=== PATIENT | female | born 1930 | race Caucasian/White ===

== ENCOUNTER 2017-09-19 17:09 | Inpatient (IN) | payer MEDICARE, OTHER ==
--- NOTE | 2017-09-19 17:30 | ED Physician Chart ---
ED Chief Complaint/HPI - Patient Information Date Seen:: 09/19/17 Time Seen:: 17:25 Chief Complaint:: increasing confusion and aggressive behavior History of Present Illness:: Patient has been exhibiting increasing confusion and aggressive behavior at her fdc facility. Allergies:: Allergies Allergy/AdvReac Type Severity Reaction Status Date / Time No Known Allergies Allergy Verified 09/19/17 17:19 Vitals:: Vital Signs - 8 hr 09/19/17 17:10 Temp 98.4 F HR 69 RR 18 BP 123/54 O2 Sat % 98 Historian:: Patient Review:: Nurse's Note Reviewed ED Review of Systems - Review of Systems General/Constitutional: No fever, No chills Skin: No skin lesions Head: No headache Eyes: No loss of vision ENT: No earache Neck: No neck pain, No swelling Cardio Vascular: No chest pain, No palpitations Pulmonary: No SOB GI: No nausea, No vomiting G/U: No dysuria Musculoskeletal: No bone or joint pain, No back pain, No muscle pain Endocrine: No polyuria, No polydipsia Psychiatric: Prior psych history Hematopoietic: No bruising Allergic/Immuno: No urticaria Neurological: No syncope, No headache ED Past Medical History - Past Medical History Past Medical History: HTN, CAD, CHF, Dyslipidemia, Thyroid disorder, Dementia, Other (insomnia; anxiety; major depression; hyperlipidemia; hypothyroidism) Family History: Other (unavailable) Social History: Care Facility Surgical History: Cholecystectomy, , other (2 sections) Psychiatricy History: Dementia Medication: Reviewed Family Medical History - Family Member Mother History Unknown: Yes ED Physical Exam - Physical Examination General/Constitutional: Well-developed, well-nourished, Alert, No distress Other Gen/Cons comments:: Patient is confused; she knows it is or Saturday but does not know the month or year Head: Atraumatic Eyes: Lids, conjuctiva normal, PERRL Skin: Nl inspection, No rash, No skin lesions, No ecchymosis, Well hydrated, No lymphadenopathy ENMT: External ears, nose nl Other ENMT comments:: Upper and lower dentures Neck: No nuchal rigidity Respiratory: Nl effort/Exclusion, Clear to Auscultation Cardio Vascular: RRR, No murmur, gallop, rubs, NL S1 S2 GI: No tenderness/rebounding/guarding, No organomegaly, No hernia, Nondistended , No mass/bruits, No McBurney tenderness : No CVA tenderness Extremities: No tenderness or effusion, Normal digits & nails Neuro/Psych: No focal deficits Misc: No paraspinal tenderness ED Labs/Radiology/EKG Results - Lab Results Results: Laboratory Results - last 24 hr 09/19/17 09/19/17 09/19/17 17:38 17:38 17:38 WBC 5.9 RBC 3.65 L Hgb 11.1 L Hct 33.3 L MCV 91.2 MCH 30.4 MCHC Differential 33.3 RDW 11.9 Plt Count 234 MPV 7.8 Neutrophils % 57.5 Lymphocytes % 30.3 Monocytes % 9.7 Eosinophils % 2.1 Basophils % 0.4 Sodium 141 Potassium 3.6 Chloride 111 H Carbon Dioxide 24.8 Anion Gap 8.8 BUN 22 Creatinine 0.8 Est GFR ( Amer) TNP Est GFR (Non-Af Amer) TNP BUN/Creatinine Ratio 27.5 Glucose 152 H Hemoglobin A1c % 6.0 Calcium 9.0 Total Bilirubin 0.3 AST 19 ALT 16 Alkaline Phosphatase 94 Total Protein 5.8 L Albumin 3.5 L Globulin 2.3 Albumin/Globulin Ratio 1.5 Triglycerides 160 H Cholesterol 152 LDL Cholesterol Direct 82 HDL Cholesterol 52 TSH Salicylates < 25.0 L Acetaminophen < 10.0 L Ethyl Alcohol < 10 09/19/17 17:38 WBC RBC Hgb Hct MCV MCH MCHC Differential RDW Plt Count MPV Neutrophils % Lymphocytes % Monocytes % Eosinophils % Basophils % Sodium Potassium Chloride Carbon Dioxide Anion Gap BUN Creatinine Est GFR ( Amer) Est GFR (Non-Af Amer) BUN/Creatinine Ratio Glucose Hemoglobin A1c % Calcium Total Bilirubin AST ALT Alkaline Phosphatase Total Protein Albumin Globulin Albumin/Globulin Ratio Triglycerides Cholesterol LDL Cholesterol Direct HDL Cholesterol TSH 2.33 Salicylates Acetaminophen Ethyl Alcohol - EKG Interpretations Rate & Rhythm: normal sinus rhythm with a rate of 64 [place]: normal Comments:: Left ventricular hypertrophy by voltage criteria and T inversion in leads V1 to V3. ED Septic Shock - . Is Septic Shock (SBP<90, OR Lactate>4 mmol\L) present?: No - <6hrs of presentation: Vital Signs: Vital Signs - 8 hr 09/19/17 17:10 Temp 98.4 F HR 69 RR 18 BP 123/54 O2 Sat % 98 ED Reassessment (Disposition) - Reassessment Reassessment Condition:: Unchanged - Diagnosis Diagnosis:: Dementia with aggressive behavior - Patient Disposition Admitted to:: [facility] Admitting Medical Physician:: Demarcus Hutchins Admitting Psych Physician:: Judah Degroot Condition at Disposition:: Unchanged ED Discharge Plan - Patient Disposition Instructions: Psychosis
[2017-09-19 17:43] LABS: % BASOPHILS 0.4 % (0.0-2.0); % EOSINOPHILS 2.1 % (0.0-5.0); % LYMPHOCYTES 30.3 % (20.0-50.0); % MONOCYTES 9.7 % (2.0-10.0); % NEUTROPHILS 57.5 % (40.0-80.0); HEMATOCRIT 33.3 % (41.0-60); HEMOGLOBIN 11.1 gm/dL (12-16); MEAN CELL VOLUME 91.2 fl (81-100); MEAN CORPUSCULAR HEMOGLOBIN 30.4 pg (27.0-31.0); MEAN CORPUSCULAR HGB CONC 33.3 pg (28.0-36.0); MEAN PLATELET VOLUME 7.8 fl; NEUTROPHILE ABSOLUTE 3.4 Th/cmm (1.8-8.0); PLATELET COUNT 234 Th/cmm (150-400); RED BLOOD COUNT 3.65 Mil/cmm (3.80-5.20); RED CELL DISTRIBUTION WIDTH 11.9 % (11.5-20.0); WHITE BLOOD COUNT 5.9 Th/cmm (4.8-10.8)
[2017-09-19 18:03] LABS: ACETAMINOPHEN < 10.0 ug/mL (10.0-30.0); ALB/GLOB RATIO 1.5 (1.0-1.8); ALKALINE PHOSPHATASE 94 U/L (34-104); ANION GAP 8.8 (7.0-16.0); BILIRUBIN,TOTAL 0.3 mg/dL (0.3-1.0); BUN - UREA NITROGEN 22 mg/dL (7-25); BUN/CREATININE RATIO 27.5; CARBON DIOXIDE 24.8 mEq/L (21.0-31.0); CHLORIDE 111 mEq/L (98-107); CHOLESTEROL 152 mg/dL (<200); CREATININE - SERUM 0.8 mg/dL (0.6-1.2); GLUCOSE 152 mg/dL (40-70); POTASSIUM SERUM 3.6 mEq/L (3.5-5.1); SGOT 19 U/L (13-39); SGPT/ALT 16 U/L (7-52); SODIUM SERUM 141 mEq/L (136-145); TRIGLYCERIDES 160 mg/dL (<150)
[2017-09-19 19:49] VITALS: BP 122/80
[2017-09-19] MEDS ORDERED: Maalox 30 mL Cup PO PRN (19:56)
[2017-09-19] MEDS ORDERED: Scopolamine 1.5 mg/ 72 hr TDM TD SCH (20:00)
--- NOTE | 2017-09-20 08:40 | History and Physical ---
History of Present Illness - HPI Chief Complaint: Increased in agitation HPI: Patient is a permanent resident of a SNF, they send her for evaluation due to increased in agitation. Vital Signs: Last Vital Signs Temp 98.4 F 09/20/17 00:35 Pulse 63 09/20/17 00:35 Resp 19 09/20/17 00:35 BP 131/56 09/20/17 00:35 Pulse Ox 96 09/20/17 00:35 Past Medical History Cardiovascular: Report: CAD, CHF, HTN Pulmonary: Report: No Pertinent Hx LIABILITY CLAIMS ADJUSTER: Report: Dementia GI: Report: No Pertinent Hx Psych: Report: Psychosis Musculoskeletal: Report: No Pertinent Hx Rheumatologic: Report: No pertinent Hx Infectious Disease: Report: No Pertinent Hx Renal/: Report: No Pertinent Hx Endocrine: Report: Hypothyroidism Dermatology: Report: No Pertinent Hx - Past Surgical History Past Surgical History: No pertinent Hx Family Medical History - Family Member Mother History Unknown: Yes Name:: unknown Ethnicity: Unknown Living Status: Unknown Hx Family Cancer: (unknown) Hx Family Coronary Artery Disease: (unknown) Hx Family Congestive Heart Failure: (unknown) Hx Family Hypertension: (unknown) Hx Family Stroke: (unknown) Hx Family Diabetes: (unknown) Hx Family Seizures: (unknown) Hx Family Dementia: (unknown) Hx Family AIDS: (unknown) Hx Family COPD: (unknown) Hx Family Hepatitis: (unknown) Hx Family Psychiatric Problems: (unknown) Hx Family Tuberculosis: (unknown) Social History Smoke: No Alcohol: None Drugs: None Lives: Intermediate Domestic Violence: Negative - Medications Home Medications: Home Medication Medication Instructions Recorded Type Acetaminophen [Tylenol] 650 mg PO Q6HR PRN 09/19/17 History Carvedilol [Coreg] 3.125 mg PO BID 09/19/17 History Clopidogrel [Plavix] 75 mg PO DAILY 09/19/17 History Donepezil HCl [Aricept] 10 mg PO DAILY 09/19/17 History Ketotifen 0.025% Ophth Soln 2 drop EACH EYE BID 09/19/17 History [Zaditor 0.025% Ophth Soln] Loperamide HCl [Imodium A-D] 1 tab PO Q12H PRN 09/19/17 History Losartan Potassium [Cozaar] 100 mg PO DAILY 09/19/17 History Mag Hydrox/Al Hydrox/Simeth 60 ml PO Q12H PRN 09/19/17 History [Aluminum & Magnesium Hydroxide/Simethicone 35] Meclizine [Antivert*] 25 mg PO DAILY 09/19/17 History Meclizine [Antivert*] 25 mg PO Q6H PRN 09/19/17 History Omeprazole 20 mg PO DAILY 09/19/17 History Ondansetron HCl [Zofran*] 2 tab PO Q6H PRN 09/19/17 History Ranolazine [Ranexa] 500 mg PO BID 09/19/17 History Scopolamine [Transderm Scop Patch] 1 patch TD Q72H 09/19/17 History Simvastatin [Zocor] 20 mg PO DAILY 09/19/17 History - Allergies Allergies/Adverse Reactions: Allergies Allergy/AdvReac Type Severity Reaction Status Date / Time No Known Allergies Allergy Verified 09/19/17 17:19 Review of Systems - Review of Systems Constitutional: Report: No Significant Eyes: Report: No Significant ENT: Report: No Significant Respiratory: Report: No Significant Cardiovascular: Report: No Significant Gastrointestinal: Report: No Significant Genitourinary: Report: No Significant Musculoskeletal: Report: No Significant Skin: Report: No Significant Neurological: Report: No Significant Physical Exam - Physical Exam HEENT: Report: Ears Nose Throat within normal limits Neck: Report: Within normal limits Cardiovascular Systems: Report: Regular, Rate and Rhythm Respiratory: Report: Breath Sounds are within normal limits Abdomen: Report: Non-tender to palpation Back: Report: Inspection of back is within normal limits. Extremities: Report: Non-tender to palpation. Skin: Report: Color of skin is within normal limits Neuro/Psych: Report: Disoriented to name time or place (Confused) - Assessment Assessment: Patient is awake, alert, calm, in no acute distress. Dx: Increased in agitation , Dementia, HTN, CAD, CHF, Hypothyroidism - Plan Plan: Patient is under psychiatric care. Will continue with SNF meds.
[2017-09-20] MEDS ORDERED: Non-Formulary Item 1 EA (Ranolazine [Ranexa] 500 MG) PO SCH (09:00)
[2017-09-20] MEDS: Pantoprazole 40 mg EC Tab PO SCH (09:52)
[2017-09-20] MEDS: Scopolamine 1.5 mg/ 72 hr TDM TD SCH (20:00)
--- NOTE | 2017-09-21 04:27 | Psychosocial Evaluation ---
DATE OF SERVICE: 09/19/2017 Staff was spoken to. The patient is interviewed. JUSTIFICATION FOR HOSPITALIZATION: The patient is admitted on a voluntary basis in view of her acute agitation, confusion, and aggressive behavior. CHIEF COMPLAINT: "I'm great." HISTORY OF PRESENT ILLNESS: This is the first psychiatric hospitalization to [facility] for this patient from [facility] where the patient is reported to been having increased confusion and aggressive behavior and hence the patient has been transferred over here for stabilization. Prior to the hospitalization, the patient was maintained on Ativan on a p.r.n. basis, but the patient during the interview has been getting easily irritable and angry and is stating that she did all kinds of job, she has so many businesses. This patient is going on and on. The patient at this time of the evaluation has been on medication for her blood pressure, but the patient has not been taking any medication. The patient is stating that she has been constantly hearing the noises and voices in her head, particularly from the TV even when she is not in front of the TV and they have been bothering her a lot. The patient is not able to sleep. The patient is stating that she also has been having problems and the patient is stating that people are getting into her business, that is the reason why she has been getting agitated. The patient is noted to be having difficult time with her short as well as long-term memory, but the patient is going on in different directions to give one answer. PAST PSYCHIATRIC HISTORY: Details are not known. MEDICAL HISTORY: Physical examination is requested and done by Dr. Hutchins. SUBSTANCE ABUSE HISTORY: None. PHYSICAL OR SEXUAL ABUSE HISTORY: None. LEGAL PROBLEMS: None at this time. STRENGTH AND ASSETS: The patient is motivated. MENTAL STATUS EXAMINATION: The patient is an 86-year-old woman looking her stated age, thin built, superficially cooperative. Eye contact is poor. Mood is irritable. The patient has paranoid delusions. The patient has been going on a tangent and the patient is not able to contract for safety. The patient is stating that she has several different jobs and she does not want to talk about it. 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 She is also stating that she is ____ and she is proud of her country. The patient's short and long-term memory noted to be very poor. The patient is going on a tangent. DIAGNOSTIC IMPRESSION: AXIS I: a. Psychosis, not otherwise specified. b. Dementia and behavioral change secondary to ____. AXIS II: None. AXIS III: As per Dr. Hutchins. IMMEDIATE TREATMENT PLAN: The patient is going to be observed on inpatient unit, provided with supportive psychotherapy. The patient is going to be closely monitored. Encouraged to participate in the groups and verbalize the concerns. Once stabilized, the patient is going to be discharged to [facility] to be followed up on an outpatient basis. JOB# [id number]
[2017-09-21] MEDS: Pantoprazole 40 mg EC Tab PO SCH (09:27)
--- NOTE | 2017-09-21 13:48 | General Progress Note ---
Subjective - Review of Systems Service Date: 09/21/17 Subjective: I want mi purse back. Objective - Results Result Diagrams: 09/19/17 17:38 09/19/17 17:38 Recent Labs: Laboratory Last Values WBC 5.9 Th/cmm (4.8-10.8) 09/19/17 17:38 RBC 3.65 Mil/cmm (3.80-5.20) L 09/19/17 17:38 Hgb 11.1 gm/dL (12-16) L 09/19/17 17:38 Hct 33.3 % (41.0-60) L 09/19/17 17:38 MCV 91.2 fl (81-100) 09/19/17 17:38 MCH 30.4 pg (27.0-31.0) 09/19/17 17:38 MCHC Differential 33.3 pg (28.0-36.0) 09/19/17 17:38 RDW 11.9 % (11.5-20.0) 09/19/17 17:38 Plt Count 234 Th/cmm (150-400) 09/19/17 17:38 MPV 7.8 fl 09/19/17 17:38 Neutrophils % 57.5 % (40.0-80.0) 09/19/17 17:38 Lymphocytes % 30.3 % (20.0-50.0) 09/19/17 17:38 Monocytes % 9.7 % (2.0-10.0) 09/19/17 17:38 Eosinophils % 2.1 % (0.0-5.0) 09/19/17 17:38 Basophils % 0.4 % (0.0-2.0) 09/19/17 17:38 Sodium 141 mEq/L (136-145) 09/19/17 17:38 Potassium 3.6 mEq/L (3.5-5.1) 09/19/17 17:38 Chloride 111 mEq/L (98-107) H 09/19/17 17:38 Carbon Dioxide 24.8 mEq/L (21.0-31.0) 09/19/17 17:38 Anion Gap 8.8 (7.0-16.0) 09/19/17 17:38 BUN 22 mg/dL (7-25) 09/19/17 17:38 Creatinine 0.8 mg/dL (0.6-1.2) 09/19/17 17:38 Est GFR ( Amer) TNP 09/19/17 17:38 Est GFR (Non-Af Amer) TNP 09/19/17 17:38 BUN/Creatinine Ratio 27.5 09/19/17 17:38 Glucose 152 mg/dL (40-70) H 09/19/17 17:38 Hemoglobin A1c % 6.0 % (4.0-6.0) 09/19/17 17:38 Calcium 9.0 mg/dL (8.6-10.3) 09/19/17 17:38 Total Bilirubin 0.3 mg/dL (0.3-1.0) 09/19/17 17:38 AST 19 U/L (13-39) 09/19/17 17:38 ALT 16 U/L (7-52) 09/19/17 17:38 Alkaline Phosphatase 94 U/L (34-104) 09/19/17 17:38 Total Protein 5.8 gm/dL (6.0-8.3) L 09/19/17 17:38 Albumin 3.5 gm/dL (3.7-5.3) L 09/19/17 17:38 Globulin 2.3 gm/dL 09/19/17 17:38 Albumin/Globulin Ratio 1.5 (1.0-1.8) 09/19/17 17:38 Triglycerides 160 mg/dL (<150) H 09/19/17 17:38 Cholesterol 152 mg/dL (<200) 09/19/17 17:38 LDL Cholesterol Direct 82 mg/dL (75-193) 09/19/17 17:38 HDL Cholesterol 52 mg/dL (23-92) 09/19/17 17:38 TSH 2.33 uIU/ml (0.34-5.60) 09/19/17 17:38 Salicylates < 25.0 mg/L (30.0-100.0) L 09/19/17 17:38 Acetaminophen < 10.0 ug/mL (10.0-30.0) L 09/19/17 17:38 Ethyl Alcohol < 10 mg/dL (0-10) 09/19/17 17:38 RPR NONREACTIVE (NONREACTIVE) 09/19/17 17:38 - Physical Exam Vitals and I&O: Vital Signs Temp 97.9 F 09/21/17 07:04 Pulse 55 09/21/17 09:28 Resp 19 09/21/17 07:04 BP 140/56 09/21/17 09:28 Pulse Ox 96 09/21/17 07:04 Intake & Output 09/20/17 09/21/17 09/21/17 18:59 06:59 18:59 Intake Total 800 240 Balance 800 240 Intake: Oral 800 240 Other: # Voids 3 1 # Bowel Movements 1 Active Medications: Current Medications Acetaminophen (Tylenol) 650 mg PO Q6HR PRN PRN Reason: MILD TO MODERATE PAIN Stop: 11/18/17 19:55 Last Admin: 09/21/17 09:45 Dose: 325 mg Al Hydrox/Mg Hydrox/Simethicone (Maalox) 60 ml PO Q12H PRN PRN Reason: Heartburn Stop: 11/18/17 19:55 Carvedilol (Coreg) 3.125 mg PO BID [facility] Stop: 11/19/17 08:59 Last Admin: 09/21/17 09:27 Dose: Not Given Clopidogrel Bisulfate (Plavix) 75 mg PO DAILY [facility] Stop: 11/19/17 08:59 Last Admin: 09/21/17 09:27 Dose: 75 mg Donepezil HCl (Aricept) 10 mg PO DAILY [facility] Stop: 11/19/17 08:59 Last Admin: 09/21/17 09:27 Dose: 10 mg Ketotifen Fumarate (Zaditor 0.025% Ophth Soln) 2 drop EACH EYE BID [facility] Stop: 11/19/17 08:59 Last Admin: 09/21/17 09:28 Dose: Not Given Loperamide HCl (Imodium) 2 mg PO Q12H PRN PRN Reason: Diarrhea Lorazepam (Ativan) 0.5 mg PO Q6H PRN; Protocol PRN Reason: Anxiety/Agitation Stop: 11/18/17 19:47 Losartan Potassium (Cozaar) 100 mg PO DAILY [facility] Stop: 11/19/17 08:59 Last Admin: 09/21/17 09:28 Dose: Not Given Meclizine HCl (Antivert) 25 mg PO DAILY [facility] Stop: 11/19/17 08:59 Last Admin: 09/21/17 09:28 Dose: Not Given Meclizine HCl (Antivert) 25 mg PO Q6H PRN PRN Reason: Vertigo Stop: 11/18/17 19:55 Ondansetron HCl (Zofran Odt) 8 mg PO Q6H PRN PRN Reason: Nausea / Vomiting Pantoprazole Sodium (Protonix) 40 mg PO DAILY [facility] Stop: 11/19/17 08:59 Last Admin: 09/21/17 09:27 Dose: Not Given Quetiapine Fumarate (Seroquel) 12.5 mg PO HS RAE PRN Reason: Protocol Stop: 11/19/17 20:59 Scopolamine (Transderm Scop Patch) 1 patch TD Q72H RAE Stop: 11/19/17 19:59 Last Admin: 09/20/17 20:00 Dose: Not Given Simvastatin (Zocor) 20 mg PO DAILY RAE PRN Reason: Protocol Stop: 11/19/17 08:59 Last Admin: 09/21/17 09:27 Dose: 20 mg Zolpidem Tartrate (Ambien) 5 mg PO HS PRN PRN Reason: Insomnia Stop: 11/18/17 19:47 General: Alert, Cooperative, No acute distress HEENT: Atraumatic Neck: Supple Cardiovascular: Regular rate Lungs: Clear to auscultation Abdomen: Bowel sounds Extremities: Other (No edema) Neurological: Normal gait Skin: Other (Warm and dry) Psych/Mental Status: Other (Confused not oriented) Assessment/Plan - Assessment Assessment: Patient is awake, alert, calm, in no acute distress. Dx: Increased in agitation , Dementia, HTN, CAD, CHF, Hypothyroidism - Plan Plan: Patient is under psychiatric care. Will continue with SNF meds.
--- NOTE | 2017-09-22 01:58 | Progress Notes ---
DATE: 09/21/2017 SUBJECTIVE: Staff was spoken to. The patient is interviewed. Mood is noted to be irritable. Affect is constricted. The patient is coming with one excuse or the other that why she should not be on the medications. The patient has been given only 12.5 mg of the Seroquel and has been refusing to comply with the medication. The patient has no insight into her illness. The patient has been pacing most of the time. The patient's speech is noted to be pressured. ASSESSMENT: The patient is still grossly psychotic. PLAN: To continue the patient with the supportive therapy and I encouraged the patient to verbalize the concerns rather than to act out. JOB# [id number]
[2017-09-22] MEDS: Pantoprazole 40 mg EC Tab PO SCH (09:36)
--- NOTE | 2017-09-22 14:04 | General Progress Note ---
Subjective - Review of Systems Service Date: 09/22/17 Subjective: I want go home Objective - Results Result Diagrams: 09/19/17 17:38 09/19/17 17:38 Recent Labs: Laboratory Last Values WBC 5.9 Th/cmm (4.8-10.8) 09/19/17 17:38 RBC 3.65 Mil/cmm (3.80-5.20) L 09/19/17 17:38 Hgb 11.1 gm/dL (12-16) L 09/19/17 17:38 Hct 33.3 % (41.0-60) L 09/19/17 17:38 MCV 91.2 fl (81-100) 09/19/17 17:38 MCH 30.4 pg (27.0-31.0) 09/19/17 17:38 MCHC Differential 33.3 pg (28.0-36.0) 09/19/17 17:38 RDW 11.9 % (11.5-20.0) 09/19/17 17:38 Plt Count 234 Th/cmm (150-400) 09/19/17 17:38 MPV 7.8 fl 09/19/17 17:38 Neutrophils % 57.5 % (40.0-80.0) 09/19/17 17:38 Lymphocytes % 30.3 % (20.0-50.0) 09/19/17 17:38 Monocytes % 9.7 % (2.0-10.0) 09/19/17 17:38 Eosinophils % 2.1 % (0.0-5.0) 09/19/17 17:38 Basophils % 0.4 % (0.0-2.0) 09/19/17 17:38 Sodium 141 mEq/L (136-145) 09/19/17 17:38 Potassium 3.6 mEq/L (3.5-5.1) 09/19/17 17:38 Chloride 111 mEq/L (98-107) H 09/19/17 17:38 Carbon Dioxide 24.8 mEq/L (21.0-31.0) 09/19/17 17:38 Anion Gap 8.8 (7.0-16.0) 09/19/17 17:38 BUN 22 mg/dL (7-25) 09/19/17 17:38 Creatinine 0.8 mg/dL (0.6-1.2) 09/19/17 17:38 Est GFR ( Amer) TNP 09/19/17 17:38 Est GFR (Non-Af Amer) TNP 09/19/17 17:38 BUN/Creatinine Ratio 27.5 09/19/17 17:38 Glucose 152 mg/dL (40-70) H 09/19/17 17:38 Hemoglobin A1c % 6.0 % (4.0-6.0) 09/19/17 17:38 Calcium 9.0 mg/dL (8.6-10.3) 09/19/17 17:38 Total Bilirubin 0.3 mg/dL (0.3-1.0) 09/19/17 17:38 AST 19 U/L (13-39) 09/19/17 17:38 ALT 16 U/L (7-52) 09/19/17 17:38 Alkaline Phosphatase 94 U/L (34-104) 09/19/17 17:38 Total Protein 5.8 gm/dL (6.0-8.3) L 09/19/17 17:38 Albumin 3.5 gm/dL (3.7-5.3) L 09/19/17 17:38 Globulin 2.3 gm/dL 09/19/17 17:38 Albumin/Globulin Ratio 1.5 (1.0-1.8) 09/19/17 17:38 Triglycerides 160 mg/dL (<150) H 09/19/17 17:38 Cholesterol 152 mg/dL (<200) 09/19/17 17:38 LDL Cholesterol Direct 82 mg/dL (75-193) 09/19/17 17:38 HDL Cholesterol 52 mg/dL (23-92) 09/19/17 17:38 TSH 2.33 uIU/ml (0.34-5.60) 09/19/17 17:38 Salicylates < 25.0 mg/L (30.0-100.0) L 09/19/17 17:38 Acetaminophen < 10.0 ug/mL (10.0-30.0) L 09/19/17 17:38 Ethyl Alcohol < 10 mg/dL (0-10) 09/19/17 17:38 RPR NONREACTIVE (NONREACTIVE) 09/19/17 17:38 - Physical Exam Vitals and I&O: Vital Signs Temp 98.6 F 09/21/17 20:00 Pulse 67 09/22/17 09:34 Resp 17 09/21/17 20:00 BP 121/71 09/22/17 09:34 Pulse Ox 98 09/21/17 20:00 Intake & Output 09/21/17 09/22/17 09/22/17 19:59 06:59 18:59 Intake Total Balance Intake: Oral Other: # Voids # Bowel Movements Active Medications: Current Medications Acetaminophen (Tylenol) 650 mg PO Q6HR PRN PRN Reason: MILD TO MODERATE PAIN Stop: 11/18/17 19:55 Last Admin: 09/21/17 09:45 Dose: 325 mg Al Hydrox/Mg Hydrox/Simethicone (Maalox) 60 ml PO Q12H PRN PRN Reason: Heartburn Stop: 11/18/17 19:55 Carvedilol (Coreg) 3.125 mg PO BID [facility] Stop: 11/19/17 08:59 Last Admin: 09/22/17 09:34 Dose: Not Given Clopidogrel Bisulfate (Plavix) 75 mg PO DAILY [facility] Stop: 11/19/17 08:59 Last Admin: 09/22/17 09:35 Dose: 75 mg Donepezil HCl (Aricept) 10 mg PO DAILY [facility] Stop: 11/19/17 08:59 Last Admin: 09/22/17 09:35 Dose: 10 mg Ketotifen Fumarate (Zaditor 0.025% Ophth Soln) 2 drop EACH EYE BID [facility] Stop: 11/19/17 08:59 Last Admin: 09/22/17 09:36 Dose: 2 drop Loperamide HCl (Imodium) 2 mg PO Q12H PRN PRN Reason: Diarrhea Lorazepam (Ativan) 0.5 mg PO Q6H PRN; Protocol PRN Reason: Anxiety/Agitation Stop: 11/18/17 19:47 Losartan Potassium (Cozaar) 100 mg PO DAILY [facility] Stop: 11/19/17 08:59 Last Admin: 09/22/17 09:33 Dose: Not Given Meclizine HCl (Antivert) 25 mg PO DAILY [facility] Stop: 11/19/17 08:59 Last Admin: 09/22/17 09:36 Dose: 25 mg Meclizine HCl (Antivert) 25 mg PO Q6H PRN PRN Reason: Vertigo Stop: 11/18/17 19:55 Ondansetron HCl (Zofran Odt) 8 mg PO Q6H PRN PRN Reason: Nausea / Vomiting Pantoprazole Sodium (Protonix) 40 mg PO DAILY [facility] Stop: 11/19/17 08:59 Last Admin: 09/22/17 09:36 Dose: Not Given Quetiapine Fumarate (Seroquel) 12.5 mg PO HS RAE PRN Reason: Protocol Stop: 11/19/17 20:59 Last Admin: 09/21/17 20:50 Dose: Not Given Scopolamine (Transderm Scop Patch) 1 patch TD Q72H [facility] Stop: 11/19/17 19:59 Last Admin: 09/20/17 20:00 Dose: Not Given Simvastatin (Zocor) 20 mg PO DAILY [facility] PRN Reason: Protocol Stop: 11/19/17 08:59 Last Admin: 09/22/17 09:32 Dose: 20 mg Zolpidem Tartrate (Ambien) 5 mg PO HS PRN PRN Reason: Insomnia Stop: 11/18/17 19:47 General: Alert, Cooperative, No acute distress HEENT: Atraumatic Neck: Supple Cardiovascular: Regular rate Lungs: Clear to auscultation Abdomen: Bowel sounds Extremities: Other (No edema) Neurological: Normal gait Skin: Other (Warm and dry) Psych/Mental Status: Other (Confused not oriented) Assessment/Plan - Assessment Assessment: Patient is awake, alert, calm, in no acute distress. Dx: Increased in agitation , Dementia, HTN, CAD, CHF, Hypothyroidism - Plan Plan: Patient is under psychiatric care. Will continue with SNF meds.
--- NOTE | 2017-09-23 00:41 | Progress Notes ---
DATE: 09/22/2017 SUBJECTIVE: Staff was spoken to. The patient is interviewed. Mood is noted to be irritable. Affect is constricted. The patient is still confused and has been trying to comfort the patient. The patient is stating that there is nothing wrong with her and she does not want any psychiatric medication. Coping skills at this time are noted to be very poor. The patient is hyperverbal and intrusive. The patient has been getting easily upset when told about the psych medications, she is only on 12.5 mg of Seroquel, but the patient is still refusing to comply with the treatment. ASSESSMENT: The patient is still paranoid and hyperactive. PLAN: To continue the patient with supportive therapy, encouraged the patient to verbalize the concerns rather than to act out. JOB# [id number]
--- NOTE | 2017-09-23 08:34 | General Progress Note ---
Subjective - Review of Systems Service Date: 09/23/17 Subjective: I want my purse back Objective - Results Result Diagrams: 09/19/17 17:38 09/19/17 17:38 Recent Labs: Laboratory Last Values WBC 5.9 Th/cmm (4.8-10.8) 09/19/17 17:38 RBC 3.65 Mil/cmm (3.80-5.20) L 09/19/17 17:38 Hgb 11.1 gm/dL (12-16) L 09/19/17 17:38 Hct 33.3 % (41.0-60) L 09/19/17 17:38 MCV 91.2 fl (81-100) 09/19/17 17:38 MCH 30.4 pg (27.0-31.0) 09/19/17 17:38 MCHC Differential 33.3 pg (28.0-36.0) 09/19/17 17:38 RDW 11.9 % (11.5-20.0) 09/19/17 17:38 Plt Count 234 Th/cmm (150-400) 09/19/17 17:38 MPV 7.8 fl 09/19/17 17:38 Neutrophils % 57.5 % (40.0-80.0) 09/19/17 17:38 Lymphocytes % 30.3 % (20.0-50.0) 09/19/17 17:38 Monocytes % 9.7 % (2.0-10.0) 09/19/17 17:38 Eosinophils % 2.1 % (0.0-5.0) 09/19/17 17:38 Basophils % 0.4 % (0.0-2.0) 09/19/17 17:38 Sodium 141 mEq/L (136-145) 09/19/17 17:38 Potassium 3.6 mEq/L (3.5-5.1) 09/19/17 17:38 Chloride 111 mEq/L (98-107) H 09/19/17 17:38 Carbon Dioxide 24.8 mEq/L (21.0-31.0) 09/19/17 17:38 Anion Gap 8.8 (7.0-16.0) 09/19/17 17:38 BUN 22 mg/dL (7-25) 09/19/17 17:38 Creatinine 0.8 mg/dL (0.6-1.2) 09/19/17 17:38 Est GFR ( Amer) TNP 09/19/17 17:38 Est GFR (Non-Af Amer) TNP 09/19/17 17:38 BUN/Creatinine Ratio 27.5 09/19/17 17:38 Glucose 152 mg/dL (40-70) H 09/19/17 17:38 Hemoglobin A1c % 6.0 % (4.0-6.0) 09/19/17 17:38 Calcium 9.0 mg/dL (8.6-10.3) 09/19/17 17:38 Total Bilirubin 0.3 mg/dL (0.3-1.0) 09/19/17 17:38 AST 19 U/L (13-39) 09/19/17 17:38 ALT 16 U/L (7-52) 09/19/17 17:38 Alkaline Phosphatase 94 U/L (34-104) 09/19/17 17:38 Total Protein 5.8 gm/dL (6.0-8.3) L 09/19/17 17:38 Albumin 3.5 gm/dL (3.7-5.3) L 09/19/17 17:38 Globulin 2.3 gm/dL 09/19/17 17:38 Albumin/Globulin Ratio 1.5 (1.0-1.8) 09/19/17 17:38 Triglycerides 160 mg/dL (<150) H 09/19/17 17:38 Cholesterol 152 mg/dL (<200) 09/19/17 17:38 LDL Cholesterol Direct 82 mg/dL (75-193) 09/19/17 17:38 HDL Cholesterol 52 mg/dL (23-92) 09/19/17 17:38 TSH 2.33 uIU/ml (0.34-5.60) 09/19/17 17:38 Salicylates < 25.0 mg/L (30.0-100.0) L 09/19/17 17:38 Acetaminophen < 10.0 ug/mL (10.0-30.0) L 09/19/17 17:38 Ethyl Alcohol < 10 mg/dL (0-10) 09/19/17 17:38 RPR NONREACTIVE (NONREACTIVE) 09/19/17 17:38 - Physical Exam Vitals and I&O: Vital Signs Temp 0 F 09/23/17 05:48 Pulse 76 09/22/17 19:54 Resp 19 09/22/17 19:54 BP 101/54 09/22/17 19:54 Pulse Ox 100 09/22/17 19:54 Intake & Output 09/22/17 09/23/17 09/23/17 18:59 06:59 18:59 Intake Total 800 120 Balance 800 120 Intake: Oral 800 120 Other: # Voids 3 3 # Bowel Movements 1 0 Active Medications: Current Medications Acetaminophen (Tylenol) 650 mg PO Q6HR PRN PRN Reason: MILD TO MODERATE PAIN Stop: 11/18/17 19:55 Last Admin: 09/21/17 09:45 Dose: 325 mg Al Hydrox/Mg Hydrox/Simethicone (Maalox) 60 ml PO Q12H PRN PRN Reason: Heartburn Stop: 11/18/17 19:55 Carvedilol (Coreg) 3.125 mg PO BID [facility] Stop: 11/19/17 08:59 Last Admin: 09/22/17 16:40 Dose: 3.125 mg Clopidogrel Bisulfate (Plavix) 75 mg PO DAILY [facility] Stop: 11/19/17 08:59 Last Admin: 09/22/17 09:35 Dose: 75 mg Donepezil HCl (Aricept) 10 mg PO DAILY [facility] Stop: 11/19/17 08:59 Last Admin: 09/22/17 09:35 Dose: 10 mg Ketotifen Fumarate (Zaditor 0.025% Ophth Soln) 2 drop EACH EYE BID [facility] Stop: 11/19/17 08:59 Last Admin: 09/22/17 16:41 Dose: 2 drop Loperamide HCl (Imodium) 2 mg PO Q12H PRN PRN Reason: Diarrhea Lorazepam (Ativan) 0.5 mg PO Q6H PRN; Protocol PRN Reason: Anxiety/Agitation Stop: 11/18/17 19:47 Losartan Potassium (Cozaar) 100 mg PO DAILY [facility] Stop: 11/19/17 08:59 Last Admin: 09/22/17 09:33 Dose: Not Given Meclizine HCl (Antivert) 25 mg PO DAILY [facility] Stop: 11/19/17 08:59 Last Admin: 09/22/17 09:36 Dose: 25 mg Meclizine HCl (Antivert) 25 mg PO Q6H PRN PRN Reason: Vertigo Stop: 11/18/17 19:55 Ondansetron HCl (Zofran Odt) 8 mg PO Q6H PRN PRN Reason: Nausea / Vomiting Pantoprazole Sodium (Protonix) 40 mg PO DAILY [facility] Stop: 11/19/17 08:59 Last Admin: 09/22/17 09:36 Dose: Not Given Quetiapine Fumarate (Seroquel) 12.5 mg PO HS [facility] PRN Reason: Protocol Stop: 11/19/17 20:59 Last Admin: 09/22/17 20:27 Dose: Not Given Scopolamine (Transderm Scop Patch) 1 patch TD Q72H [facility] Stop: 11/19/17 19:59 Last Admin: 09/20/17 20:00 Dose: Not Given Simvastatin (Zocor) 20 mg PO DAILY [facility] PRN Reason: Protocol Stop: 11/19/17 08:59 Last Admin: 09/22/17 09:32 Dose: 20 mg Zolpidem Tartrate (Ambien) 5 mg PO HS PRN PRN Reason: Insomnia Stop: 11/18/17 19:47 General: Alert, Cooperative, No acute distress HEENT: Atraumatic Neck: Supple Cardiovascular: Regular rate Lungs: Clear to auscultation Abdomen: Bowel sounds Extremities: Other (No edema) Neurological: Normal gait Skin: Other (Warm and dry) Psych/Mental Status: Other (Confused not oriented) Assessment/Plan - Assessment Assessment: Patient is awake, alert, calm, in no acute distress. Dx: Increased in agitation , Dementia, HTN, CAD, CHF, Hypothyroidism - Plan Plan: Patient is under psychiatric care. Will continue with SNF meds.
[2017-09-23] MEDS: Pantoprazole 40 mg EC Tab PO SCH (08:35)
[2017-09-23] MEDS: Scopolamine 1.5 mg/ 72 hr TDM TD SCH (20:36)
--- NOTE | 2017-09-23 20:51 | Progress Notes ---
DATE: 09/23/2017 SUBJECTIVE: Staff was spoken to. The patient is interviewed. Mood is noted to be irritable. Affect is constricted. Insight and judgment are noted to be still impaired. Impulse control is noted to be poor. The patient has been focusing on other people and stating that they are making too much of noise and she should not be the one taking the medication. The patient has not been making much sense. The patient has been refusing to take the Seroquel that was given even as 12.5 mg. The patient's coping skills are noted to be very poor. The patient is getting easily agitated and trying to go to other people and tried to help them out. ASSESSMENT: The patient is still paranoid and getting agitated. PLAN: To continue the patient with the supportive therapy. I encouraged the patient to verbalize the concerns rather than to act out. JOB# [id number]
[2017-09-24] MEDS: Pantoprazole 40 mg EC Tab PO SCH (08:46)
--- NOTE | 2017-09-24 08:53 | General Progress Note ---
Subjective - Review of Systems Service Date: 09/24/18 Subjective: I want my purse back Objective - Results Result Diagrams: 09/19/17 17:38 09/19/17 17:38 Recent Labs: Laboratory Last Values WBC 5.9 Th/cmm (4.8-10.8) 09/19/17 17:38 RBC 3.65 Mil/cmm (3.80-5.20) L 09/19/17 17:38 Hgb 11.1 gm/dL (12-16) L 09/19/17 17:38 Hct 33.3 % (41.0-60) L 09/19/17 17:38 MCV 91.2 fl (81-100) 09/19/17 17:38 MCH 30.4 pg (27.0-31.0) 09/19/17 17:38 MCHC Differential 33.3 pg (28.0-36.0) 09/19/17 17:38 RDW 11.9 % (11.5-20.0) 09/19/17 17:38 Plt Count 234 Th/cmm (150-400) 09/19/17 17:38 MPV 7.8 fl 09/19/17 17:38 Neutrophils % 57.5 % (40.0-80.0) 09/19/17 17:38 Lymphocytes % 30.3 % (20.0-50.0) 09/19/17 17:38 Monocytes % 9.7 % (2.0-10.0) 09/19/17 17:38 Eosinophils % 2.1 % (0.0-5.0) 09/19/17 17:38 Basophils % 0.4 % (0.0-2.0) 09/19/17 17:38 Sodium 141 mEq/L (136-145) 09/19/17 17:38 Potassium 3.6 mEq/L (3.5-5.1) 09/19/17 17:38 Chloride 111 mEq/L (98-107) H 09/19/17 17:38 Carbon Dioxide 24.8 mEq/L (21.0-31.0) 09/19/17 17:38 Anion Gap 8.8 (7.0-16.0) 09/19/17 17:38 BUN 22 mg/dL (7-25) 09/19/17 17:38 Creatinine 0.8 mg/dL (0.6-1.2) 09/19/17 17:38 Est GFR ( Amer) TNP 09/19/17 17:38 Est GFR (Non-Af Amer) TNP 09/19/17 17:38 BUN/Creatinine Ratio 27.5 09/19/17 17:38 Glucose 152 mg/dL (40-70) H 09/19/17 17:38 Hemoglobin A1c % 6.0 % (4.0-6.0) 09/19/17 17:38 Calcium 9.0 mg/dL (8.6-10.3) 09/19/17 17:38 Total Bilirubin 0.3 mg/dL (0.3-1.0) 09/19/17 17:38 AST 19 U/L (13-39) 09/19/17 17:38 ALT 16 U/L (7-52) 09/19/17 17:38 Alkaline Phosphatase 94 U/L (34-104) 09/19/17 17:38 Total Protein 5.8 gm/dL (6.0-8.3) L 09/19/17 17:38 Albumin 3.5 gm/dL (3.7-5.3) L 09/19/17 17:38 Globulin 2.3 gm/dL 09/19/17 17:38 Albumin/Globulin Ratio 1.5 (1.0-1.8) 09/19/17 17:38 Triglycerides 160 mg/dL (<150) H 09/19/17 17:38 Cholesterol 152 mg/dL (<200) 09/19/17 17:38 LDL Cholesterol Direct 82 mg/dL (75-193) 09/19/17 17:38 HDL Cholesterol 52 mg/dL (23-92) 09/19/17 17:38 TSH 2.33 uIU/ml (0.34-5.60) 09/19/17 17:38 Salicylates < 25.0 mg/L (30.0-100.0) L 09/19/17 17:38 Acetaminophen < 10.0 ug/mL (10.0-30.0) L 09/19/17 17:38 Ethyl Alcohol < 10 mg/dL (0-10) 09/19/17 17:38 RPR NONREACTIVE (NONREACTIVE) 09/19/17 17:38 - Physical Exam Vitals and I&O: Vital Signs Temp 97.8 F 09/23/17 20:16 Pulse 54 09/23/17 20:16 Resp 20 09/23/17 20:16 BP 112/54 09/23/17 20:16 Pulse Ox 98 09/23/17 20:16 Intake & Output 09/23/17 09/24/17 09/24/17 18:59 06:59 18:59 Intake Total 950 540 Balance 950 540 Intake: Oral 950 540 Other: # Voids 4 1 # Bowel Movements 1 0 Active Medications: Current Medications Acetaminophen (Tylenol) 650 mg PO Q6HR PRN PRN Reason: MILD TO MODERATE PAIN Stop: 11/18/17 19:55 Last Admin: 09/23/17 17:01 Dose: 650 mg Al Hydrox/Mg Hydrox/Simethicone (Maalox) 60 ml PO Q12H PRN PRN Reason: Heartburn Stop: 11/18/17 19:55 Carvedilol (Coreg) 3.125 mg PO BID [facility] Stop: 11/19/17 08:59 Last Admin: 09/23/17 16:57 Dose: 3.125 mg Clopidogrel Bisulfate (Plavix) 75 mg PO DAILY [facility] Stop: 11/19/17 08:59 Last Admin: 09/23/17 08:34 Dose: 75 mg Donepezil HCl (Aricept) 10 mg PO DAILY [facility] Stop: 11/19/17 08:59 Last Admin: 09/23/17 08:37 Dose: Not Given Ketotifen Fumarate (Zaditor 0.025% Ophth Soln) 2 drop EACH EYE BID [facility] Stop: 11/19/17 08:59 Last Admin: 09/23/17 16:58 Dose: 2 drop Loperamide HCl (Imodium) 2 mg PO Q12H PRN PRN Reason: Diarrhea Lorazepam (Ativan) 0.5 mg PO Q6H PRN; Protocol PRN Reason: Anxiety/Agitation Stop: 11/18/17 19:47 Losartan Potassium (Cozaar) 100 mg PO DAILY [facility] Stop: 11/19/17 08:59 Last Admin: 09/23/17 08:55 Dose: 100 mg Meclizine HCl (Antivert) 25 mg PO DAILY [facility] Stop: 11/19/17 08:59 Last Admin: 09/23/17 08:35 Dose: 25 mg Meclizine HCl (Antivert) 25 mg PO Q6H PRN PRN Reason: Vertigo Stop: 11/18/17 19:55 Ondansetron HCl (Zofran Odt) 8 mg PO Q6H PRN PRN Reason: Nausea / Vomiting Pantoprazole Sodium (Protonix) 40 mg PO DAILY [facility] Stop: 11/19/17 08:59 Last Admin: 09/23/17 08:35 Dose: 40 mg Quetiapine Fumarate (Seroquel) 12.5 mg PO HS [facility] PRN Reason: Protocol Stop: 11/19/17 20:59 Last Admin: 09/23/17 20:47 Dose: 12.5 mg Scopolamine (Transderm Scop Patch) 1 patch TD Q72H [facility] Stop: 11/19/17 19:59 Last Admin: 09/23/17 20:36 Dose: 1 patch Simvastatin (Zocor) 20 mg PO DAILY [facility] PRN Reason: Protocol Stop: 11/19/17 08:59 Last Admin: 09/23/17 08:37 Dose: Not Given Zolpidem Tartrate (Ambien) 5 mg PO HS PRN PRN Reason: Insomnia Stop: 11/18/17 19:47 General: Alert, Cooperative, No acute distress HEENT: Atraumatic Neck: Supple Cardiovascular: Regular rate Lungs: Clear to auscultation Abdomen: Bowel sounds Extremities: Other (No edema) Neurological: Normal gait Skin: Other (Warm and dry) Psych/Mental Status: Other (Confused not oriented) Assessment/Plan - Assessment Assessment: Patient is awake, alert, calm, in no acute distress. Dx: Increased in agitation , Dementia, HTN, CAD, CHF, Hypothyroidism - Plan Plan: Patient is under psychiatric care. Will continue with SNF meds.
--- NOTE | 2017-09-24 20:28 | Progress Notes ---
DATE: 09/24/2017 SUBJECTIVE: Staff was spoken to. The patient is interviewed. Mood is noted to be irritable. Affect is constricted. The patient's insight and judgment at this time are noted to be still impaired. Impulse control is noted to be limited. The patient is having short-term memory versus long-term memory seems to be fair. The patient is stating that she does not need any medication. The patient is very paranoid, confused, and has been getting into other people's rooms. ASSESSMENT: The patient is still paranoid. PLAN: Encouraged the patient to comply with the medications and the patient's behavior has not gotten to the point where the patient needs to be medicated against her will. Plan to continue the patient with the current medications and supportive therapy and follow her. JOB# [id number]
--- NOTE | 2017-09-25 09:57 | Progress Notes ---
DATE: 09/25/2017 Staff was spoken to. The patient is interviewed. Mood is noted to be less irritable. Affect is appropriate. The patient has finally agreed to start to comply with medication. The patient has pain on 12.5 mg of the Seroquel, which is going to be increased to 25 mg at bedtime and patient is going to be followed up. ASSESSMENT: The patient is still paranoid and impulsive with the therapy. Speech seems to be coming down. PLAN: To continue the patient with supportive therapy and encouraged the patient to verbalize the concerns rather than to act out. JOB# [id number]
[2017-09-25] MEDS: Pantoprazole 40 mg EC Tab PO SCH (10:00)
--- NOTE | 2017-09-25 11:32 | General Progress Note ---
Subjective - Review of Systems Service Date: 09/25/17 Subjective: I want my purse back Objective - Results Result Diagrams: 09/19/17 17:38 09/19/17 17:38 Recent Labs: Laboratory Last Values WBC 5.9 Th/cmm (4.8-10.8) 09/19/17 17:38 RBC 3.65 Mil/cmm (3.80-5.20) L 09/19/17 17:38 Hgb 11.1 gm/dL (12-16) L 09/19/17 17:38 Hct 33.3 % (41.0-60) L 09/19/17 17:38 MCV 91.2 fl (81-100) 09/19/17 17:38 MCH 30.4 pg (27.0-31.0) 09/19/17 17:38 MCHC Differential 33.3 pg (28.0-36.0) 09/19/17 17:38 RDW 11.9 % (11.5-20.0) 09/19/17 17:38 Plt Count 234 Th/cmm (150-400) 09/19/17 17:38 MPV 7.8 fl 09/19/17 17:38 Neutrophils % 57.5 % (40.0-80.0) 09/19/17 17:38 Lymphocytes % 30.3 % (20.0-50.0) 09/19/17 17:38 Monocytes % 9.7 % (2.0-10.0) 09/19/17 17:38 Eosinophils % 2.1 % (0.0-5.0) 09/19/17 17:38 Basophils % 0.4 % (0.0-2.0) 09/19/17 17:38 Sodium 141 mEq/L (136-145) 09/19/17 17:38 Potassium 3.6 mEq/L (3.5-5.1) 09/19/17 17:38 Chloride 111 mEq/L (98-107) H 09/19/17 17:38 Carbon Dioxide 24.8 mEq/L (21.0-31.0) 09/19/17 17:38 Anion Gap 8.8 (7.0-16.0) 09/19/17 17:38 BUN 22 mg/dL (7-25) 09/19/17 17:38 Creatinine 0.8 mg/dL (0.6-1.2) 09/19/17 17:38 Est GFR ( Amer) TNP 09/19/17 17:38 Est GFR (Non-Af Amer) TNP 09/19/17 17:38 BUN/Creatinine Ratio 27.5 09/19/17 17:38 Glucose 152 mg/dL (40-70) H 09/19/17 17:38 Hemoglobin A1c % 6.0 % (4.0-6.0) 09/19/17 17:38 Calcium 9.0 mg/dL (8.6-10.3) 09/19/17 17:38 Total Bilirubin 0.3 mg/dL (0.3-1.0) 09/19/17 17:38 AST 19 U/L (13-39) 09/19/17 17:38 ALT 16 U/L (7-52) 09/19/17 17:38 Alkaline Phosphatase 94 U/L (34-104) 09/19/17 17:38 Total Protein 5.8 gm/dL (6.0-8.3) L 09/19/17 17:38 Albumin 3.5 gm/dL (3.7-5.3) L 09/19/17 17:38 Globulin 2.3 gm/dL 09/19/17 17:38 Albumin/Globulin Ratio 1.5 (1.0-1.8) 09/19/17 17:38 Triglycerides 160 mg/dL (<150) H 09/19/17 17:38 Cholesterol 152 mg/dL (<200) 09/19/17 17:38 LDL Cholesterol Direct 82 mg/dL (75-193) 09/19/17 17:38 HDL Cholesterol 52 mg/dL (23-92) 09/19/17 17:38 TSH 2.33 uIU/ml (0.34-5.60) 09/19/17 17:38 Salicylates < 25.0 mg/L (30.0-100.0) L 09/19/17 17:38 Acetaminophen < 10.0 ug/mL (10.0-30.0) L 09/19/17 17:38 Ethyl Alcohol < 10 mg/dL (0-10) 09/19/17 17:38 RPR NONREACTIVE (NONREACTIVE) 09/19/17 17:38 - Physical Exam Vitals and I&O: Vital Signs Temp 98.2 F 09/25/17 06:38 Pulse 65 09/25/17 06:38 Resp 20 09/25/17 06:38 BP 105/62 09/25/17 06:38 Pulse Ox 96 09/25/17 06:38 Intake & Output 09/24/17 09/25/17 09/25/17 18:59 06:59 18:59 Intake Total 900 240 Balance 900 240 Weight (lbs) 47.945 kg Intake: Oral 900 240 Other: # Voids 4 3 # Bowel Movements 1 0 Active Medications: Current Medications Acetaminophen (Tylenol) 650 mg PO Q6HR PRN PRN Reason: MILD TO MODERATE PAIN Stop: 11/18/17 19:55 Last Admin: 09/23/17 17:01 Dose: 650 mg Al Hydrox/Mg Hydrox/Simethicone (Maalox) 60 ml PO Q12H PRN PRN Reason: Heartburn Stop: 11/18/17 19:55 Carvedilol (Coreg) 3.125 mg PO BID [facility] Stop: 11/19/17 08:59 Last Admin: 09/24/17 17:05 Dose: 3.125 mg Clopidogrel Bisulfate (Plavix) 75 mg PO DAILY [facility] Stop: 11/19/17 08:59 Last Admin: 09/25/17 10:00 Dose: 75 mg Donepezil HCl (Aricept) 10 mg PO DAILY [facility] Stop: 11/19/17 08:59 Last Admin: 09/25/17 10:00 Dose: 10 mg Ketotifen Fumarate (Zaditor 0.025% Oph Soln) 2 drop EACH EYE BID [facility] Stop: 11/19/17 08:59 Last Admin: 09/25/17 09:59 Dose: 2 drop Loperamide HCl (Imodium) 2 mg PO Q12H PRN PRN Reason: Diarrhea Lorazepam (Ativan) 0.5 mg PO Q6H PRN; Protocol PRN Reason: Anxiety/Agitation Stop: 11/18/17 19:47 Losartan Potassium (Cozaar) 100 mg PO DAILY [facility] Stop: 11/19/17 08:59 Last Admin: 09/24/17 08:53 Dose: Not Given Meclizine HCl (Antivert) 25 mg PO DAILY [facility] Stop: 11/19/17 08:59 Last Admin: 09/25/17 10:00 Dose: 25 mg Meclizine HCl (Antivert) 25 mg PO Q6H PRN PRN Reason: Vertigo Stop: 11/18/17 19:55 Ondansetron HCl (Zofran Odt) 8 mg PO Q6H PRN PRN Reason: Nausea / Vomiting Pantoprazole Sodium (Protonix) 40 mg PO DAILY [facility] Stop: 11/19/17 08:59 Last Admin: 09/25/17 10:00 Dose: 40 mg Quetiapine Fumarate (Seroquel) 25 mg PO HS [facility] PRN Reason: Protocol Stop: 11/24/17 08:37 Scopolamine (Transderm Scop Patch) 1 patch TD Q72H [facility] Stop: 11/19/17 19:59 Last Admin: 09/23/17 20:36 Dose: 1 patch Simvastatin (Zocor) 20 mg PO DAILY [facility] PRN Reason: Protocol Stop: 11/19/17 08:59 Last Admin: 09/25/17 09:59 Dose: 20 mg Zolpidem Tartrate (Ambien) 5 mg PO HS PRN PRN Reason: Insomnia Stop: 11/18/17 19:47 General: Alert, Cooperative, No acute distress HEENT: Atraumatic Neck: Supple Cardiovascular: Regular rate Lungs: Clear to auscultation Abdomen: Bowel sounds Extremities: Other (No edema) Neurological: Normal gait Skin: Other (Warm and dry) Psych/Mental Status: Other (Confused not oriented) Assessment/Plan - Assessment Assessment: Patient is awake, alert, calm, in no acute distress. Dx: Increased in agitation , Dementia, HTN, CAD, CHF, Hypothyroidism - Plan Plan: Patient is under psychiatric care. Will continue with SNF meds. Nutritional Asmnt/Malnutr-PDOC - Dietary Evaluation Malnutrition Findings (Please click <Entered> for more info): Nutritional Asmnt/Malnutrition Start: 09/24/17 10: 57 Text: Status: Complete Freq: Document 09/24/17 10:57 [email or web address] (Rec: 09/24/17 11:02 GERONIMO [id number]) Nutritional Asmnt/Malnutrition Patient General Information Nutritional Screening Moderate Risk Diagnosis Psychosis NOS, dementia an behavioral change Pertinent Medical Hx/Surgical Hx CAD, CHF, HTN, dementia, psychosis, hypothyroidism Subjective Information 86 year old female. [place] speaking, talkative, pleasant, some confusion noted, ambulates. RN Rhoda assisted with translations. Limited nutrition hx due to pt's confusion. Pt did mention does not like spices and would prefer meat to be more tender so easier to chew. Pt is edentulous with dentures, denied difficulties chewing, report writer suggested chopped meats only, pt agreeable. Pt appeared slight overweight for height with belly, no muscle/ fat wasting noted. Obtained CBW 105.7lb with bedscale calibrated. Avg PO intake 86% of past 11 meals since adm, meeting nutritnioal needs. Current Diet Order/ Nutrition Support NCS, MADHU, thin Pertinent Medications Imodium, Zofran, Protonix, Seroquel Pertinent Labs 09/19: glucose 152H, A1c 6 Nutritional Hx/Data Height 1.47 m Height (Calculated Centimeters) 147.3 Current Weight (lbs) 47.945 kg Weight (Calculated Kilograms) 47.9 Weight (Calculated Grams) 39304.7 Body Mass Index (BMI) 22.1 Weight Status Approriate GI Symptoms GI Symptoms None Last BM 09/23 Difficult in: None Food Allergies No Skin Integrity/Comment: Edgar 17. Left and right hand bruises. Current %PO Good (75-100%) Estimated Nutritional Goals BEE in Kcals: Using Current wt Calories/Kcals/Kg CBW 105.7lb/48kg Kcals Calculated 1200-1440kcal (25-30kcal/kg) Protein: Using Current wt Protein Calculated 48g (1g/kg) Fluid: ml 1200-1440ml (1ml/kcal) Nutritional Problem 1. Problem Problem Difficulty chewing related to Etiology edentulous with dentures aeb Signs/Symptoms: pt requested chopped meat for easier chewing Intervention/Recommendation Comments 1. Recommend chopped meat only per pt's request. Avg PO intake is adequate. 2. Remove "ncs" as FNS does not honor, no hx DM noted in H &P. 3. Obtained CBW 105.7lb with bedscale properly calibrated. Expected Outcomes/Goals Expected Outcomes/Goals 1. PO intake continue to meet at least 75% of estimated nutritnioal needs.
--- NOTE | 2017-09-26 09:11 | General Progress Note ---
Subjective - Review of Systems Service Date: 09/26/17 Subjective: I want my purse back Objective - Results Result Diagrams: 09/19/17 17:38 09/19/17 17:38 Recent Labs: Laboratory Last Values WBC 5.9 Th/cmm (4.8-10.8) 09/19/17 17:38 RBC 3.65 Mil/cmm (3.80-5.20) L 09/19/17 17:38 Hgb 11.1 gm/dL (12-16) L 09/19/17 17:38 Hct 33.3 % (41.0-60) L 09/19/17 17:38 MCV 91.2 fl (81-100) 09/19/17 17:38 MCH 30.4 pg (27.0-31.0) 09/19/17 17:38 MCHC Differential 33.3 pg (28.0-36.0) 09/19/17 17:38 RDW 11.9 % (11.5-20.0) 09/19/17 17:38 Plt Count 234 Th/cmm (150-400) 09/19/17 17:38 MPV 7.8 fl 09/19/17 17:38 Neutrophils % 57.5 % (40.0-80.0) 09/19/17 17:38 Lymphocytes % 30.3 % (20.0-50.0) 09/19/17 17:38 Monocytes % 9.7 % (2.0-10.0) 09/19/17 17:38 Eosinophils % 2.1 % (0.0-5.0) 09/19/17 17:38 Basophils % 0.4 % (0.0-2.0) 09/19/17 17:38 Sodium 141 mEq/L (136-145) 09/19/17 17:38 Potassium 3.6 mEq/L (3.5-5.1) 09/19/17 17:38 Chloride 111 mEq/L (98-107) H 09/19/17 17:38 Carbon Dioxide 24.8 mEq/L (21.0-31.0) 09/19/17 17:38 Anion Gap 8.8 (7.0-16.0) 09/19/17 17:38 BUN 22 mg/dL (7-25) 09/19/17 17:38 Creatinine 0.8 mg/dL (0.6-1.2) 09/19/17 17:38 Est GFR ( Amer) TNP 09/19/17 17:38 Est GFR (Non-Af Amer) TNP 09/19/17 17:38 BUN/Creatinine Ratio 27.5 09/19/17 17:38 Glucose 152 mg/dL (40-70) H 09/19/17 17:38 Hemoglobin A1c % 6.0 % (4.0-6.0) 09/19/17 17:38 Calcium 9.0 mg/dL (8.6-10.3) 09/19/17 17:38 Total Bilirubin 0.3 mg/dL (0.3-1.0) 09/19/17 17:38 AST 19 U/L (13-39) 09/19/17 17:38 ALT 16 U/L (7-52) 09/19/17 17:38 Alkaline Phosphatase 94 U/L (34-104) 09/19/17 17:38 Total Protein 5.8 gm/dL (6.0-8.3) L 09/19/17 17:38 Albumin 3.5 gm/dL (3.7-5.3) L 09/19/17 17:38 Globulin 2.3 gm/dL 09/19/17 17:38 Albumin/Globulin Ratio 1.5 (1.0-1.8) 09/19/17 17:38 Triglycerides 160 mg/dL (<150) H 09/19/17 17:38 Cholesterol 152 mg/dL (<200) 09/19/17 17:38 LDL Cholesterol Direct 82 mg/dL (75-193) 09/19/17 17:38 HDL Cholesterol 52 mg/dL (23-92) 09/19/17 17:38 TSH 2.33 uIU/ml (0.34-5.60) 09/19/17 17:38 Salicylates < 25.0 mg/L (30.0-100.0) L 09/19/17 17:38 Acetaminophen < 10.0 ug/mL (10.0-30.0) L 09/19/17 17:38 Ethyl Alcohol < 10 mg/dL (0-10) 09/19/17 17:38 RPR NONREACTIVE (NONREACTIVE) 09/19/17 17:38 - Physical Exam Vitals and I&O: Vital Signs Temp 98.3 F 09/25/17 20:00 Pulse 65 09/25/17 20:00 Resp 19 09/25/17 20:00 BP 130/61 09/25/17 20:00 Pulse Ox 100 09/25/17 20:00 Intake & Output 09/25/17 09/26/17 09/26/17 18:59 06:59 18:59 Intake Total 120 Balance 120 Intake: Oral 120 Other: # Voids 3 Active Medications: Current Medications Acetaminophen (Tylenol) 650 mg PO Q6HR PRN PRN Reason: MILD TO MODERATE PAIN Stop: 11/18/17 19:55 Last Admin: 09/23/17 17:01 Dose: 650 mg Al Hydrox/Mg Hydrox/Simethicone (Maalox) 60 ml PO Q12H PRN PRN Reason: Heartburn Stop: 11/18/17 19:55 Carvedilol (Coreg) 3.125 mg PO BID [facility] Stop: 11/19/17 08:59 Last Admin: 09/25/17 18:14 Dose: Not Given Clopidogrel Bisulfate (Plavix) 75 mg PO DAILY [facility] Stop: 11/19/17 08:59 Last Admin: 09/25/17 10:00 Dose: 75 mg Donepezil HCl (Aricept) 10 mg PO DAILY [facility] Stop: 11/19/17 08:59 Last Admin: 09/25/17 10:00 Dose: 10 mg Ketotifen Fumarate (Zaditor 0.025% Ophth Soln) 2 drop EACH EYE BID [facility] Stop: 11/19/17 08:59 Last Admin: 09/25/17 18:14 Dose: Not Given Loperamide HCl (Imodium) 2 mg PO Q12H PRN PRN Reason: Diarrhea Lorazepam (Ativan) 0.5 mg PO Q6H PRN; Protocol PRN Reason: Anxiety/Agitation Stop: 11/18/17 19:47 Losartan Potassium (Cozaar) 100 mg PO DAILY [facility] Stop: 11/19/17 08:59 Last Admin: 09/25/17 14:26 Dose: Not Given Meclizine HCl (Antivert) 25 mg PO DAILY [facility] Stop: 11/19/17 08:59 Last Admin: 09/25/17 10:00 Dose: 25 mg Meclizine HCl (Antivert) 25 mg PO Q6H PRN PRN Reason: Vertigo Stop: 11/18/17 19:55 Ondansetron HCl (Zofran Odt) 8 mg PO Q6H PRN PRN Reason: Nausea / Vomiting Pantoprazole Sodium (Protonix) 40 mg PO DAILY [facility] Stop: 11/19/17 08:59 Last Admin: 09/25/17 10:00 Dose: 40 mg Quetiapine Fumarate (Seroquel) 25 mg PO HS [facility] PRN Reason: Protocol Stop: 11/24/17 08:37 Last Admin: 09/25/17 20:57 Dose: 25 mg Scopolamine (Transderm Scop Patch) 1 patch TD Q72H [facility] Stop: 11/19/17 19:59 Last Admin: 09/23/17 20:36 Dose: 1 patch Simvastatin (Zocor) 20 mg PO DAILY [facility] PRN Reason: Protocol Stop: 11/19/17 08:59 Last Admin: 09/25/17 09:59 Dose: 20 mg Zolpidem Tartrate (Ambien) 5 mg PO HS PRN PRN Reason: Insomnia Stop: 11/18/17 19:47 General: Alert, Cooperative, No acute distress HEENT: Atraumatic Neck: Supple Cardiovascular: Regular rate Lungs: Clear to auscultation Abdomen: Bowel sounds Extremities: Other (No edema) Neurological: Normal gait Skin: Other (Warm and dry) Psych/Mental Status: Other (Confused not oriented) Assessment/Plan - Assessment Assessment: Patient is awake, alert, calm, in no acute distress. Dx: Increased in agitation , Dementia, HTN, CAD, CHF, Hypothyroidism - Plan Plan: Patient is under psychiatric care. Will continue with SNF meds. Nutritional Asmnt/Malnutr-PDOC - Dietary Evaluation Malnutrition Findings (Please click <Entered> for more info): Nutritional Asmnt/Malnutrition Start: 09/24/17 10: 57 Text: Status: Complete Freq: Document 09/24/17 10:57 [email or web address] G (Rec: 09/24/17 11:02 GERONIMO [id number]) Nutritional Asmnt/Malnutrition Patient General Information Nutritional Screening Moderate Risk Diagnosis Psychosis NOS, dementia an behavioral change Pertinent Medical Hx/Surgical Hx CAD, CHF, HTN, dementia, psychosis, hypothyroidism Subjective Information 86 year old female. Dominican speaking, talkative, pleasant, some confusion noted, ambulates. UDAY Duong assisted with translations. Limited nutrition hx due to pt's confusion. Pt did mention does not like spices and would prefer meat to be more tender so easier to chew. Pt is edentulous with dentures, denied difficulties chewing, proposal writer suggested chopped meats only, pt agreeable. Pt appeared slight overweight for height with belly, no muscle/ fat wasting noted. Obtained CBW 105.7lb with bedscale calibrated. Avg PO intake 86% of past 11 meals since adm, meeting nutritnioal needs. Current Diet Order/ Nutrition Support NCS, MADHU, thin Pertinent Medications Imodium, Zofran, Protonix, Seroquel Pertinent Labs 09/19: glucose 152H, A1c 6 Nutritional Hx/Data Height 1.47 m Height (Calculated Centimeters) 147.3 Current Weight (lbs) 47.945 kg Weight (Calculated Kilograms) 47.9 Weight (Calculated Grams) 05341.7 Body Mass Index (BMI) 22.1 Weight Status Approriate GI Symptoms GI Symptoms None Last BM 09/23 Difficult in: None Food Allergies No Skin Integrity/Comment: Edgar 17. Left and right hand bruises. Current %PO Good (75-100%) Estimated Nutritional Goals BEE in Kcals: Using Current wt Calories/Kcals/Kg CBW 105.7lb/48kg Kcals Calculated 1200-1440kcal (25-30kcal/kg) Protein: Using Current wt Protein Calculated 48g (1g/kg) Fluid: ml 1200-1440ml (1ml/kcal) Nutritional Problem 1. Problem Problem Difficulty chewing related to Etiology edentulous with dentures aeb Signs/Symptoms: pt requested chopped meat for easier chewing Intervention/Recommendation Comments 1. Recommend chopped meat only per pt's request. Avg PO intake is adequate. 2. Remove "ncs" as FNS does not honor, no hx DM noted in H &P. 3. Obtained CBW 105.7lb with bedscale properly calibrated. Expected Outcomes/Goals Expected Outcomes/Goals 1. PO intake continue to meet at least 75% of estimated nutritnioal needs.
[2017-09-26] MEDS: Pantoprazole 40 mg EC Tab PO SCH (09:33)
--- NOTE | 2017-09-26 20:11 | Progress Notes ---
DATE: 09/26/2017 SUBJECTIVE: Staff was spoken to. The patient is interviewed. Chart is reviewed. The patient continues to be irritable and angry. The patient's insight and judgment at this time are noted to be very much impaired. The patient has been having difficult time to cope with the stress, continues to be paranoid and is stating that there is no reason for her to be on the medications. ASSESSMENT: The patient is still grossly psychotic. PLAN: To continue the patient with supportive therapy. We encouraged the patient to verbalize the concerns rather than to act out. Please note that the patient is not ready to be discharged to a lower level of care. Plan to continue the patient with supportive therapy and follow. [facility]# [id number]
== END 2017-09-26 13:30 | disposition home or self-care (01) | DRG 885 ==
LOC: ER 17:09 → GERO 18:50
PROVIDERS: ADMIT Psychiatry & Neurology Psychiatry; ATTEND Psychiatry & Neurology Psychiatry
DX: F29 Unspecified psychosis not due to a substance or known physiological condition (principal); F03.91 Unspecified dementia, unspecified severity, with behavioral disturbance; I50.9 Heart failure, unspecified; I11.0 Hypertensive heart disease with heart failure; I25.10 Atherosclerotic heart disease of native coronary artery without angina pectoris; E03.9 Hypothyroidism, unspecified; E78.5 Hyperlipidemia, unspecified; F41.9 Anxiety disorder, unspecified; F32.9 Major depressive disorder, single episode, unspecified; Z90.49 Acquired absence of other specified parts of digestive tract
CPT/HCPCS: 36415-UA; 80053-TC; 80061-TC; 80320-TC; 80329-TC; 83036-90; 84443-TC; 85025-TC; 86592-TC; 93005; Z7610